=== PATIENT | male | born 2000 | race Caucasian/White ===

== ENCOUNTER 2025-03-07 13:40 | Outpatient (RCR) | payer OTHER, SELFPAY ==
--- NOTE | 2025-03-08 11:30 | HO.PHP ---
This clinician called the patient's emergency contact (Moon Benjamin, her mother) to gather information about the client's absence to the first day of Program. The mother reported that she was away from home and indicated that as far as she knew her daughter was coming when she left the house. The clinician explained the protocol of the Program and the mom requested a couple of minutes to get to her house and call back with a response. The patient's mother called back and reported that the patient got extremely anxious, was at home, and coming tomorrow (03/09/25) to the Program. No safety concerns were reported.
--- NOTE | 2025-03-09 09:44 | HO.PHP ---
PHP staff member reached out to Sofya due to her not arriving to our program and a voicemail was left. PHP staff member is awaiting a call back and stated in the voicemail that if she does not receive a call back, she will have to reach out to her emergency contact and if the emergency contact does not respond then we will have to do a wellness check. PHP staff member did not receive a call back from Sofya, therefore, PHP staff initiated reaching out to her emergency contact. Nolbertos mother said she is here but the door was closed to our group room, so she is in her car and too anxious to come into program. PHP staff member asked the mother if she feels Sofya will be able to do this program, she said she is uncertain but doesn't think so because she is very anxious. PHP staff member did inform the mother that she had reached out to Sofya but have not received a response. PHP staff member told the mother if she is unable to join groups today that we will have to discharge her. Mother was receptive. PHP staff member also encouraged the mother to have Sofya call me so we could further review next steps. Floyd mother was receptive. PHP staff member reached back out to the mother after 15 minutes due to Sofya not reaching out. PHP staff member explored with Floyd mother if she is still here because she has not heard. Floyd mother did inform staff that she asked her to call and she believes she may be here still but is uncertain. PHP staff member noted that we would like to work with her because we understand that coming into a group setting could be anxiety provoking, in which we would like to work with her to try to reduce that anxiety and get her into the group setting. Floyd mother said she can try but she can't guarantee that Sofya will reach out. PHP staff member was receptive.
--- NOTE | 2025-03-09 15:00 | HO.PHP ---
PHP staff member and admin never received a return phone call from [facility], therefore she is being discharged from the program.
== END 2025-03-07 23:59 | disposition home or self-care (01) ==
LOC: HO.PHPA 13:40
PROVIDERS: Visit Provider Psychiatry & Neurology Psychiatry
DX: F33.2 Major depressive disorder, recurrent severe without psychotic features (principal); F90.9 Attention-deficit hyperactivity disorder, unspecified type; F40.10 Social phobia, unspecified; F50.00 Anorexia nervosa, unspecified; F41.1 Generalized anxiety disorder; F11.20 Opioid dependence, uncomplicated
CPT/HCPCS: 90791